=== PATIENT | male | born 1950 | race Caucasian/White ===

== ENCOUNTER 2018-06-22 14:05 | Emergency (ER) | payer MEDICARE, OTHER ==
[~2018-06-22] VITALS: Ht 172.7 cm; Wt 81.8 kg
[2018-06-22] MEDS ORDERED: [UNRECOGNIZED DRUG - CODE] SQ (14:14)
[2018-06-22 15:24] VITALS: BP 108/68
== END 2018-06-22 15:27 | disposition home or self-care (01) ==
LOC: EMS 14:06
DX: S00.03XA Contusion of scalp, initial encounter (principal); Z79.899 Other long term (current) drug therapy; Z85.46 Personal history of malignant neoplasm of prostate; W11.XXXA Fall on and from ladder, initial encounter; Y93.89 Activity, other specified; Y92.89 Other specified places as the place of occurrence of the external cause; Y99.8 Other external cause status

== ENCOUNTER 2025-05-13 20:16 | Inpatient (IN) | payer MEDICARE, OTHER ==
[~2025-05-13] VITALS: Ht 172.7 cm; Wt 76.9 kg
[~2025-05-13 20:16] MED LIST: [UNRECOGNIZED DRUG - CODE] SQ
[2025-05-13 20:20] VITALS: PULSE 83; RESP 24; O2SAT 100
[2025-05-13] MEDS ORDERED: 0.9% SODIUM CHLORIDE 15 ML NEB SOLUTION NEB ONE (20:27)
[2025-05-13] MEDS: ALBUTEROL SULFATE 2.5 MG/0.5 ML 5 ML NEB SOLUTION NEB ONE (20:46)
[2025-05-13] MEDS: IPRATROPIUM BROMIDE 0.5 MG/2.5 ML NEB SOLUTION NEB ONE (20:46)
[2025-05-13 20:50] VITALS: PULSE 68; RESP 20; O2SAT 99
[2025-05-13 20:53] LABS: PLATELET COUNT (AUTO) 288 K/uL (150-450); RED BLOOD CELL COUNT(AUTO) 4.12 MIL/uL (4.50-5.90); RED CELL DISTRIBUTION WIDTH 14.3 % (11.5-14.5); WHITE BLOOD COUNT (AUTO) 10.9 K/uL (4.5-11.0)
[2025-05-13 21:04] LABS: ABG BASE EXCESS -0.4 mmol/L (-2.0-3.0); ABG CARBOXYHEMOGLOBIN 0.9 % (0.5-1.5); ABG HCO3 24.3 mmol/L (21.0-28.0); ABG METHEMOGLOBIN 1.1 % (0.0-1.5); ABG OXYGEN CONTENT 18.4 mL/dL (15.0-23.0); ABG OXYGEN SATURATION 98.8 % (94.0-98.0); ABG OXYHEMOGLOBIN 96.8 % (94.0-98.0); ABG PCO2 38 mmHg (32.0-48.0); ABG PH 7.416 (7.350-7.450); ABG TOTAL HEMOGLOBIN 13.4 G/dL (13.5-17.5); FRACTIONATED INSPIRED OXYGEN 44.0 % (21-100.0); PO2, ARTERIAL BG 119.0 mmHg (83.0-108.0); SOURCE, BLOOD GAS ARTERIAL; TEMPERATURE, FAHRENHEIT, BG 97.8 FAHREN (96.0-98.6)
[2025-05-13 21:05] LABS: CALCIUM, TOTAL 9.1 mg/dL (8.8-10.5); CREATININE 1.32 mg/dL (0.60-1.30); GLOMERULAR FILTR. RATE CALC 53 mL/min (>60); GLUCOSE,RANDOM 187 mg/dL (70-110); SODIUM SERUM 137 mmol/L (136-145); UREA NITROGEN, BLOOD 21 mg/dL (7-18)
[2025-05-13 21:06] LABS: ABG A-A DIFF O2 151.3 mmHg (10-20.0); ALLEN TEST, BLOOD GAS Positive; FLOW, BLOOD GAS 6.00 L/min (0.00-15.00); O2 DEVICE,BLOOD GAS TRACH COLLAR (ROOM AIR); SITE, BLOOD GAS LFT RADIAL
[2025-05-13 21:07] LABS: PATIENT RATE, BG 20.0 min.
[2025-05-13 21:12] LABS: ASPARTATE AMINOTRANSFERASE 26.0 U/L (15-37); CREATINE KINASE, TOTAL ONLY 82.0 U/L (39-308); TOTAL PROTEIN, SERUM 6.7 g/dL (6.4-8.2)
[2025-05-13 21:16] LABS: TROPONIN I-HIGH SENSITIVITY 876 ng/L (<76)
[2025-05-13 21:50] VITALS: PULSE 84; RESP 18; RESP 20; O2SAT 100
[2025-05-13] MEDS: SODIUM CHLORIDE 0.9% 1,000 ML IV ONE (21:51)
[2025-05-13] MEDS: ASPIRIN 300 MG RECTAL SUPPOSITORY PR ONE (22:03)
[2025-05-13] MEDS ORDERED: ACETAMINOPHEN 325 MG TABLET PO PRN (22:30)
[2025-05-13] MEDS ORDERED: 0.9% SODIUM CHLORIDE 10 ML SYRINGE IVP PRN (22:30)
[2025-05-13] MEDS ORDERED: ONDANSETRON HCL 4 MG/2 ML VIAL IVP PRN (22:30)
[2025-05-13] MEDS: ATORVASTATIN CALCIUM 40 MG TABLET PO ONE (22:36)
[2025-05-13] MEDS ORDERED: ACETAMINOPHEN 650 MG/20.3 ML SOLUTION UDCUP GT PRN (22:45)
[2025-05-13] MEDS: PIPERACILLIN/TAZO 3.375 GM/D5W 50 ML IV SCH (22:56)
[2025-05-13] MEDS ORDERED: INSULIN LISPRO 100 UNITS/ML SQ PRN (23:30)
[2025-05-13] MEDS ORDERED: DEXTROSE 50%-WATER 25 GM/50 ML SYRINGE IVP PRN (23:30)
[2025-05-13 23:31] LABS: CALCIUM, TOTAL 7.9 mg/dL (8.8-10.5); CREATININE 1.19 mg/dL (0.60-1.30); GLOMERULAR FILTR. RATE CALC 60.0 mL/min (>60); GLUCOSE,RANDOM 202.0 mg/dL (70-110); SODIUM SERUM 141.0 mmol/L (136-145); UREA NITROGEN, BLOOD 20.0 mg/dL (7-18)
[2025-05-13 23:32] LABS: GLUCOSE,RANDOM 200 mg/dL (70-110)
[2025-05-13 23:49] LABS: LACTATE DEHYDROGENASE 229 U/L (85-227)
[2025-05-13 23:51] LABS: LACTIC ACID 5.7 mmol/L (0.4-2.0); TROPONIN I-HIGH SENSITIVITY 2687 ng/L (<76)
[2025-05-14] VITALS (12 sets, daily range): BP systolic 96–129; BP diastolic 68–91; PULSE 63–76; RESP 12–24; TEMP 98.1–98.8; O2SAT 98–100
[2025-05-14] MEDS ORDERED: MAGNESIUM OXIDE 400 MG TABLET PO PRN (00:30)
[2025-05-14] MEDS ORDERED: MAGNESIUM SULFATE 2 GM/WATER 50 ML IV PRN (00:30)
[2025-05-14] MEDS ORDERED: POTASSIUM CHLORIDE 20 MEQ ER TABLET PO PRN (00:30)
[2025-05-14] MEDS ORDERED: MAGNESIUM SULFATE 4 GM/WATER 100 ML IV PRN (00:30)
[2025-05-14] MEDS: RINGERS SOLUTION,LACTATED 500 ML IV ONE ×2 (00:37→02:02)
[2025-05-14] MEDS: HEPARIN SODIUM,PORCINE 5,000 UNITS/ML VIAL SQ SCH (00:42)
[2025-05-14] MEDS: ALBUMIN HUMAN 5%-12.5GM/250ML 250 ML IV ONE (00:42)
[2025-05-14] MEDS: VANCOMYCIN 1.5 GM/WATER(PEG) 300 ML IV ONE (00:42)
[2025-05-14] MEDS ORDERED: SODIUM CHLORIDE 0.9% 100 ML ONE (00:56)
[2025-05-14] MEDS ORDERED: IOHEXOL 350 MG/ML 150 ML VIAL ONE (00:56)
[2025-05-14] MEDS ORDERED: NOREPINEPHRINE 8 MG/0.9 % NACL 250 ML IV PRN (01:45)
[2025-05-14] MEDS: POTASSIUM CHL 10 MEQ/WATER 50 ML IV SCH ×2 (01:45→08:36)
[2025-05-14] MEDS: POTASSIUM CHL 10 MEQ/WATER 50 ML IV PRN (01:52)
[2025-05-14 02:45] LABS: TROPONIN I-HIGH SENSITIVITY 3632 ng/L (<76)
[2025-05-14] MEDS: LIDOCAINE 2% 6 ML JELLY TP ONE (04:00)
[2025-05-14 05:16] LABS: APPEARANCE,URINE CLEAR (CLEAR); GLUCOSE, URINE (UA) 70-100 mg/dL (NEGATIVE); LEUKOCYTE ESTERASE ,URINE NEGATIVE (NEGATIVE); NITRATE,URINE NEGATIVE (NEGATIVE); OCCULT BLOOD,URINE SMALL (NEGATIVE); SPECIFIC GRAVITIY, URINE 1.031 (1.003-1.030)
[2025-05-14 05:18] LABS: SQUAMOUS EPITHELIAL CELL,UR Few /LPF (None Seen)
[2025-05-14] MEDS ORDERED: SODIUM CHLORIDE 0.9% 250 ML IV ONE (05:44)
[2025-05-14] MEDS ORDERED: HEPARIN SODIUM,PORCINE 5,000 UNITS/ML VIAL IVP PRN (06:15)
[2025-05-14 06:30] LABS: PLATELET COUNT (AUTO) 217 K/uL (150-450); RED BLOOD CELL COUNT(AUTO) 3.33 MIL/uL (4.50-5.90); RED CELL DISTRIBUTION WIDTH 14.0 % (11.5-14.5); WHITE BLOOD COUNT (AUTO) 10.1 K/uL (4.5-11.0)
[2025-05-14 06:56] LABS: TROPONIN I-HIGH SENSITIVITY 3679 ng/L (<76)
[2025-05-14] MEDS: HEPARIN SODIUM 25000 UNITS/D5W 250 ML IV PRN (07:09)
[2025-05-14] MEDS: ASPIRIN 81 MG CHEWABLE TABLET GT SCH (08:36)
[2025-05-14] MEDS: DOCUSATE SODIUM 100 MG/10 ML LIQUID UDCUP GT SCH (08:36)
[2025-05-14] MEDS: VANCOMYCIN 750 MG/WATER(PEG) 150 ML IV SCH (08:37)
[2025-05-14] MEDS ORDERED: ASPIRIN 81 MG CHEWABLE TABLET PO SCH (09:00)
[2025-05-14] MEDS ORDERED: DOCUSATE SODIUM 100 MG CAPSULE PO SCH (09:00)
[2025-05-14] MEDS ORDERED: ETHYL ALCOHOL 62% ANTISEPTIC NASAL SANITIZER 0.6 ML AMPUL NASAL SCH (09:00)
[2025-05-14 13:42] LABS: CALCIUM, TOTAL 7.8 mg/dL (8.8-10.5); CREATININE 0.70 mg/dL (0.60-1.30); GLOMERULAR FILTR. RATE CALC > 60 mL/min (>60); GLUCOSE,RANDOM 111 mg/dL (70-110); SODIUM SERUM 139 mmol/L (136-145); UREA NITROGEN, BLOOD 11 mg/dL (7-18)
[2025-05-14 15:21] LABS: GLUCOMETER DEV NAME(LOC) ICU.S7; GLUCOSE,POINT OF CARE 110 MG/DL (70-110)
[2025-05-14] MEDS: IPRATROPIUM BROMIDE 0.5 MG/2.5 ML NEB SOLUTION NEB PRN (15:25)
[2025-05-14] MEDS: ALBUTEROL SULFATE 2.5 MG/0.5 ML NEB SOLUTION NEB PRN (15:25)
[2025-05-14 17:25] LABS: GLUCOMETER DEV NAME(LOC) 5N.2C; GLUCOSE,POINT OF CARE 99 MG/DL (70-110)
[2025-05-14] MEDS: ATORVASTATIN CALCIUM 40 MG TABLET GT SCH (20:56)
[2025-05-14] MEDS ORDERED: ATORVASTATIN CALCIUM 40 MG TABLET PO SCH (21:00)
[2025-05-14] MEDS: CHLORHEXIDINE GLUCONATE 2% TOWELETTE [2'S/6'S] TP SCH (22:29)
[2025-05-15] VITALS (8 sets, daily range): BP systolic 92–100; BP diastolic 66–78; PULSE 59–78; RESP 16–18; TEMP 98–99; O2SAT 0–100
[2025-05-15 06:12] LABS: PLATELET COUNT (AUTO) 211 K/uL (150-450); RED BLOOD CELL COUNT(AUTO) 3.47 MIL/uL (4.50-5.90); RED CELL DISTRIBUTION WIDTH 14.3 % (11.5-14.5); WHITE BLOOD COUNT (AUTO) 10.4 K/uL (4.5-11.0)
[2025-05-15 06:25] LABS: CALCIUM, TOTAL 8.0 mg/dL (8.8-10.5); CREATININE 0.71 mg/dL (0.60-1.30); GLOMERULAR FILTR. RATE CALC > 60 mL/min (>60); GLUCOSE,RANDOM 106 mg/dL (70-110); SODIUM SERUM 139 mmol/L (136-145); UREA NITROGEN, BLOOD 9 mg/dL (7-18)
[2025-05-15 06:33] LABS: CHOL/HDL RATIO 1.9 (4.2-7.3); LDL CHOL (CALC.) 33.0 mg/dL (0-130)
[2025-05-15 06:46] LABS: TROPONIN I-HIGH SENSITIVITY 1660 ng/L (<76)
[2025-05-15] MEDS ORDERED: POTASSIUM CHL 10 MEQ/WATER 50 ML IV PRN (07:00)
[2025-05-15 07:21] LABS: GLUCOMETER DEV NAME(LOC) 5N.2C; GLUCOSE,POINT OF CARE 109 MG/DL (70-110)
[2025-05-15 07:21] LABS: GLUCOMETER DEV NAME(LOC) 5N.2C; GLUCOSE,POINT OF CARE 107 MG/DL (70-110)
[2025-05-15] MEDS: VANCOMYCIN 1.25 GM/WATER(PEG) 250 ML IV SCH (08:24)
[2025-05-15 12:46] LABS: GLUCOMETER DEV NAME(LOC) 5S.1E; GLUCOSE,POINT OF CARE 104 MG/DL (70-110)
[2025-05-15] MEDS ORDERED: SODIUM CHLORIDE 0.9% 500 ML IV ONE (15:03)
[2025-05-15] MEDS: MAGNESIUM SULFATE 2 GM, MVI, ADULT NO.1 WITH VIT K 10 ML, THIAMINE 100 MG, FOLIC ACID 1... IV SCH (17:30)
[2025-05-15 18:30] LABS: GLUCOMETER DEV NAME(LOC) 5S.1E; GLUCOSE,POINT OF CARE 112 MG/DL (70-110)
[2025-05-15] MEDS ORDERED: SODIUM CHLORIDE 0.9% 250 ML IV ONE (23:40)
[2025-05-15] MEDS: HEPARIN SODIUM,PORCINE 5,000 UNITS/ML VIAL IVP PRN (23:46)
[2025-05-16] VITALS (7 sets, daily range): BP systolic 94–119; BP diastolic 66–79; PULSE 59–82; RESP 15–32; TEMP 98–98.7; O2SAT 88–99
[2025-05-16 06:14] LABS: PLATELET COUNT (AUTO) 224 K/uL (150-450); RED BLOOD CELL COUNT(AUTO) 3.74 MIL/uL (4.50-5.90); RED CELL DISTRIBUTION WIDTH 14.4 % (11.5-14.5); WHITE BLOOD COUNT (AUTO) 9.8 K/uL (4.5-11.0)
[2025-05-16 06:16] LABS: GLUCOMETER DEV NAME(LOC) 5S.1E; GLUCOSE,POINT OF CARE 117 MG/DL (70-110)
[2025-05-16 06:21] LABS: ASPARTATE AMINOTRANSFERASE 38 U/L (15-37); CALCIUM, TOTAL 8.0 mg/dL (8.8-10.5); CREATININE 0.61 mg/dL (0.60-1.30); GLOMERULAR FILTR. RATE CALC > 60 mL/min (>60); GLUCOSE,RANDOM 99 mg/dL (70-110); SODIUM SERUM 137 mmol/L (136-145); TOTAL PROTEIN, SERUM 5.7 g/dL (6.4-8.2); UREA NITROGEN, BLOOD 11 mg/dL (7-18)
[2025-05-16 06:35] LABS: GLUCOMETER DEV NAME(LOC) ICU.S7; GLUCOSE,POINT OF CARE 103 MG/DL (70-110)
[2025-05-16 14:41] LABS: GLUCOMETER DEV NAME(LOC) ICUN.7; GLUCOSE,POINT OF CARE 90 MG/DL (70-110)
== END 2025-05-16 17:15 | disposition short-term general hospital (02) | DRG 871 ==
LOC: EMS 20:19 → EDH 22:26 → ICU 05-14 05:20 → 5N 05-14 14:50 → ICU 05-15 23:34
PROVIDERS: ADMIT Internal Medicine; ATTEND Internal Medicine
DX: A41.9 Sepsis, unspecified organism (principal); G93.41 Metabolic encephalopathy; I21.4 Non-ST elevation (NSTEMI) myocardial infarction; J96.00 Acute respiratory failure, unspecified whether with hypoxia or hypercapnia; J95.03 Malfunction of tracheostomy stoma; J04.10 Acute tracheitis without obstruction; C85.91 Non-Hodgkin lymphoma, unspecified, lymph nodes of head, face, and neck; N17.9 Acute kidney failure, unspecified; D64.9 Anemia, unspecified; R13.10 Dysphagia, unspecified; R22.1 Localized swelling, mass and lump, neck; I95.9 Hypotension, unspecified; E87.6 Hypokalemia; Z91.199 Patient's noncompliance with other medical treatment and regimen due to unspecified reason; Z79.899 Other long term (current) drug therapy
CPT/HCPCS: 70450; 70491; 71045; 71275; 80048; 80053; 80061; 80076; 80202; 81001; 82040; 82550; 82805; 82947; 82962; 83605; 83615; 83735; 83880; 84132; 84145; 84484; 85025; 85379; 85610; 85730; 87040; 87081; 93005; 93306; 93970; 94640; 94644; 96361; 96374; 99285; G0238; J1644; J2543; J2919; J3411; J3475; J3480; J3490; J7030; J7040; J7050; J7120; P9041; 36415-L1; 36415-TC; J7613